=== PATIENT | female | born 1995 | race Caucasian/White ===

== ENCOUNTER 2016-07-11 11:20 | Emergency (ER) | payer OTHER ==
[~2016-07-11] VITALS: Ht 160 cm; Wt 72.6 kg
[2016-07-11 11:29] VITALS: BP 130/82
--- NOTE | 2016-07-11 12:30 | ED THROAT/DENTAL COMPLAINT ---
History of Present Illness General Chief Complaint: Sore Throat, Dental Pain Stated Complaint: L SIDE DENTAL PAIN Source: patient Exam Limitations: no limitations Vital Signs & Intake/Output Vital Signs & Intake/Output Vital Signs Date Time Temp Pulse Resp B/P Pulse O2 O2 Flow FiO2 Ox Delivery Rate 07/11 1129 97.1 86 18 130/82 98 Room Air Allergies Coded Allergies: No Known Allergies (07/11/16) Reconcile Medications Augmentin (Augmentin 500-125 Tablet) 500 MG-125 MG TABLET 1 TAB PO BID DENTAL PAIN Hydrocodone/Acetaminophen (Vicodin 5-300 MG Tablet) 5 MG-300 MG TABLET 1 TAB PO TID PRN PAIN Meloxicam (Mobic) 15 MG TABLET 1 TAB PO DAILY PRN PAIN Triage Note: COMPLAINS OF L SIDE DENTAL PAIN SINCE YESTERDAY Triage Nurses Notes Reviewed? yes Onset: Gradual Duration: constant Timing: single episode today Severity: severe Severity Numbers: 8 : No Patient currently breastfeeds: No HPI: pATIENT IS A 21-YEAR-OLD FEMALE WHO PRESENTS EMERGENT WITH A 3 DAY HISTORY OF GRADUAL ONSET OF RIGHT-SIDED UPPER posterior dental pain. Patient denies any mechanism injury denies any fever chills denies any sore throat denies any gum swelling tongue swelling lip swelling. Patient states that she is trying to establish health insurance to try to establish a dentist to have the teeth removed. Patient tried [id number] ibuprofen with no relief of symptoms. (JAY JAY VÁZQUEZ) Past History Travel History Traveled to [place] past 21 day No Medical History Any Pertinent Medical History? none Neurological: NONE EENT: NONE Cardiovascular: NONE Respiratory: NONE Gastrointestinal: NONE Hepatic: NONE Renal: NONE Musculoskeletal: NONE Psychiatric: NONE Endocrine: NONE Blood Disorders: NONE Cancer(s): NONE ARCHIVIST POLITICAL HISTORY/Reproductive: NONE Surgical History Surgical History: non-contributory Psychosocial History What is your primary language [place] Citizen Tobacco Use: Never used ETOH Use: denies use Illicit Drug Use: denies illicit drug use Family History Hx Contributory? No (JAY JAY VÁZQUEZ) Review of Systems Review of Systems Constitutional: Reports: no symptoms. EENTM: Reports: see HPI, tooth pain. Respiratory: Reports: no symptoms. Cardiovascular: Reports: no symptoms. GI: Reports: no symptoms. Genitourinary: Reports: no symptoms. Musculoskeletal: Reports: no symptoms. Skin: Reports: no symptoms. Neurological/Psychological: Reports: no symptoms. Hematologic/Endocrine: Reports: no symptoms. Immunologic/Allergic: Reports: no symptoms. All Other Systems: Reviewed and Negative (JAY JAY VÁZQUEZ) Physical Exam Physical Exam General Appearance: mild distress Mouth/Throat: pharynx normal, dental tenderness Comments: HEENT: Normal EENT exam, extraocular motion intact, no nystagmus. Pupils equally round and reactive to light and accommodation. Nose is atraumatic. External auditory canal and Tympanic membranes clear. Pharynx normal. No swelling or edema. Neck: Supple, no lymphadenopathy, normal range of motion without pain or tenderness Back: Nontender, no CVA tenderness. Cardiovascular: Regular rate and rhythms no murmurs rubs or gallops, normal JVP Respiratory: Chest nontender. No respiratory distress.breath sounds clear to auscultation bilaterally Extremity: No edema, no calf tenderness to palpation, normal and equal pulses. Neuro: Alert oriented x3, motor sensory normal, Skin: No appreciable rash on exposed skin, skin is warm and dry. Psych: Mood and affect is normal, memory and judgment is normal. Diagram Dental: 1) Noted significant plaque and point tenderness No fracture no surrounding gum swelling or abscess no discharge Patient does have noted uniform poor DENTITION Core Measures ACS in differential dx? No Severe Sepsis Present: No Septic Shock Present: No (JAY JAY VÁZQUEZ) Progress Differential Diagnosis: aspirated tooth, carious tooth, epiglottitis, Ludwigs angina, meningitis, odontogenic abscess, tamanna-tonsillar abscess, pharyngeal for. body, stomatitis/gingivitis, strep pharyngitis, tooth fracture Plan of Care: Patient this time shows no concerns of Darrius angina or peritonsillar abscess patient was strongly advised to follow up with dentist. No trismus noted no posterior pharynx swelling (JAY JAY VÁZQUEZ) Departure Departure Disposition: HOME OR SELF CARE Condition: Stable Clinical Impression Primary Impression: Pain, dental Referrals: PATIENT HAS NO PRIMARY CARE DR (PCP/Family) Additional Instructions: As discussed begin the prescription of Augmentin as directed to prevent infection. If symptoms worsen return to emergency room. Begin the prescription Meloxicam for Pain and Inflammation and Begin the Prescription of Vicodin for Breakthrough Pain Relief. Prescriptions Are Waiting at [facility]. Please Follow up and Establish a Dentist on Thursday for Further EVALUATION and Treatment. Departure Forms: Customer Survey General Discharge Information Prescriptions: Current Visit Scripts Augmentin (Augmentin 500-125 Tablet) 1 TAB PO BID #14 TAB Meloxicam (Mobic) 1 TAB PO DAILY PRN PAIN #15 TAB Hydrocodone/Acetaminophen (Vicodin 5-300 MG Tablet) 1 TAB PO TID PRN PAIN #15 TAB (JAY JAY VÁZQUEZ) PA/SECURITY SYSTEMS ADMINISTRATOR Co-Sign Statement Statement: ED Attending supervision documentation- [] I saw and evaluated the patient. I have also reviewed all the pertinent lab results and diagnostic results. I agree with the findings and the plan of care as documented in the PA's/SECURITY SYSTEMS ADMINISTRATOR's documentation. [X] I have reviewed the ED Record and agree with the PA's/SECURITY SYSTEMS ADMINISTRATOR's documentation. [] Additions or exceptions (if any) to the PAs/SECURITY SYSTEMS ADMINISTRATOR's note and plan are summarized below: [] (SANIA DOLAN,ERWIN)
[2016-07-11] MEDS ORDERED: MOBIC15 M1 PO (12:42)
[2016-07-11] MEDS ORDERED: VICODIN 5-3001 EACH PO (12:42)
[2016-07-11] MEDS ORDERED: AUGMENTIN 500-1 EACH PO (12:42)
== END 2016-07-11 13:03 ==
LOC: ERH 11:20
DX: K08.89 Other specified disorders of teeth and supporting structures (principal)